=== PATIENT | female | born 1970 | race Caucasian/White ===

== ENCOUNTER → 2016-11-09 | Outpatient (CLI) | payer OTHER ==
--- NOTE | 2016-11-09 16:20 | CT ---
EXAMINATION TYPE: CT brain wo con DATE OF EXAM: 11/09/2016 4:09 PM COMPARISON: NONE HISTORY: Dizziness for 5-[address] DLP: 1121 mGycm Automated exposure control for dose reduction was used. FINDINGS: There is no acute intracranial hemorrhage, mass effect, or midline shift identified. The ventricles and sulci are within normal limits in size. Question some periventricular white matter low-attenuatio n. The globes are intact and the visualized sinuses are clear. IMPRESSION: No acute intracranial hemorrhage, mass effect, or midline shift is seen. Possible white matter demyel ination. Consider MRI.
== END | disposition home or self-care (01) ==
LOC: RADCTMAIN 15:47
PROVIDERS: ATTEND Family Medicine
DX: R42 Dizziness and giddiness (principal)
CPT/HCPCS: 70450

== ENCOUNTER → 2016-11-28 | Outpatient (CLI) | payer OTHER ==
--- NOTE | 2016-11-28 06:50 | MR ---
EXAMINATION TYPE: MR brain wo con DATE OF EXAM: 11/28/2016 6:44 AM COMPARISON: CT brain November 09, 2016. HISTORY: Dizziness, abnormal CT. TECHNIQUE: Multiplanar, multisequence imaging of the brain and brainstem is performed without IV cont rast. FINDINGS: Diffusion weighted images demonstrate no evidence of a recent infarct or other diffusion abnormality. There is no extraaxial fluid collection or significant white matter signal abnormality. The ventricu lar system and cisternal spaces are normal in size and appearance. The brain volume is age appropria te. Midline structures demonstrate normal morphology. The craniocervical junction appears within normal limits. Normal vascular flow voids are present. The visualized sinuses are clear and the globes are i ntact. No suspicious fluid signal is seen in mastoid air cells bilaterally. IMPRESSION: No significant white matter changes present. No significant finding is seen to account fo r patient's symptoms.
== END | disposition home or self-care (01) ==
LOC: RADMRIMAIN 06:06
PROVIDERS: ATTEND Family Medicine
DX: R93.0 Abnormal findings on diagnostic imaging of skull and head, not elsewhere classified (principal)
CPT/HCPCS: 70551

== ENCOUNTER → 2017-02-05 | Outpatient (CLI) | payer OTHER ==
--- NOTE | 2017-02-05 11:50 | MM ---
Reason for exam: clinical finding. Last mammogram was performed 7 years and 8 months ago. History: Family history of breast cancer in maternal aunt and breast cancer in maternal cousin. Excisional biopsy of the left breast, 2001. Benign stereotactic core biopsy of the left breast, September 28, 2000. Benign stereotactic core biopsy of the left breast, September 28, 2000. Indicated problem(s): palpable abnormality and pain in the left breast. Physical Findings: Nurse Summary: a 2cm nodule in the left breast at 10 o'clock (nurse ciarra). [facility] Diagnostic Mammo w CAD ROME Bilateral CC and MLO view(s) were taken. ML view(s) were taken of the left breast. Prior study comparison: June 22, 2009, left breast mammogram dig work up. June 18, 2009, bilateral digital screening mammogram. There are scattered fibroglandular densities. No suspicious calcifications are seen. A 2.4 cm lobulated mass in the left breast at 9 o'clock. These results were verbally communicated with the patient and result sheet given to the patient on 02/05/17. ASSESSMENT: Incomplete: need additional imaging evaluation, BI-RAD 0 RECOMMENDATION: Ultrasound of the left breast. Manage patient on a clinical basis.
--- NOTE | 2017-02-05 11:52 | USB ---
Reason for exam: additional evaluation requested from abnormal screening. History: Family history of breast cancer in maternal aunt and breast cancer in maternal cousin. Excisional biopsy of the left breast, 2001. Benign stereotactic core biopsy of the left breast, September 28, 2000. Benign stereotactic core biopsy of the left breast, September 28, 2000. US Breast LT Left breast ultrasound includes all four quadrants, the retroareolar region and axilla. Finding demonstrate a 0.5 x 0.4 x 0.4cm oval hypoechoic lesion at 12 o'clock, a 1.2 x 1.4 x 0.5cm oval, hypoechoic, vascular, periphery lesion at 1 o'clock for which a biopsy is recommended and a 2.4 x 2.0 x 1.8cm oval, lobulated, vascular, periphery lesion at 9 o'clock for which a biopsy is recommended. These results were verbally communicated with the patient and result sheet given to the patient on 02/05/17. ASSESSMENT: Suspicious, BI-RAD 4 RECOMMENDATION: Ultrasound core biopsy of the left breast (x 2) Called Dr. Steen with mammographic findings and has scheduled an appointment for the patient for 02/20/17 at 9:[address] Collazo. PRELIMINARY REPORT CALLED AND FAXED TO DR. COLLAZO ON 02/05/17 AT 300/TMP.
== END | disposition home or self-care (01) ==
LOC: RADMAMWWP 08:23
PROVIDERS: ATTEND Family Medicine
DX: R92.2 Inconclusive mammogram (principal); R92.8 Other abnormal and inconclusive findings on diagnostic imaging of breast; N63 Unspecified lump in breast; Z80.3 Family history of malignant neoplasm of breast
CPT/HCPCS: 76641; G0204

== ENCOUNTER → 2017-02-13 | Day surgery (SDC) | payer OTHER ==
[~2017-02-13] MED LIST: ALPRAZolam 0.25 MG TAB ONE; BACITRACIN OINT 1 EACH PACKET TOPICAL ONE; LIDOCAINE 1% INJ 10MG/ML (20 ML MDV) ONE
--- NOTE | 2017-02-13 14:29 | USB ---
EXAMINATION TYPE: US biopsy breast VAD LT, US biopsy breast add'l VAD LT Post biopsy left breast mammogram DATE OF EXAM: 02/13/2017 1:36 PM CLINICAL HISTORY: 46-year-old female abnormal mammogram, enlarging left breast mass for the last 6 months. TECHNIQUE: Ultrasound guided core biopsy of the left breast, 2 sites. COMPARISON: 02/05/2017 FINDINGS: The procedure of ultrasound guided core biopsy was explained to the patient. Benefits, alternatives, and risks were discussed. An informed consent was then obtained. The patient was placed in supine positioning for imaging and for the procedure. The overlying skin was prepped and draped in usual sterile fashion. Lidocaine was used as anesthetic into the skin and subcutaneous tissue up to age area of concern in the left breast in turn. Site A, 1:00 (1.2 x 1.2 cm circumscribed, ovoid solid mass) -- Under ultrasound guidance, a 13-gauge vacuum-assisted mammotome Elite biopsy gun was used to obtain 6 core samples. Following this, a coil clip was left in lesion. Site B, 9:00 (large 2.1 cm lobulated solid mass) -- Under ultrasound guidance, a 13-gauge vacuum-assisted mammotome Elite biopsy gun was used to obtain 6 core samples. Following this, a ribbon clip was deposited at the periphery of the lesion. The patient tolerated the procedure well without any immediate complication. The patient was kept in the radiology department for short stay after the procedure and then discharged home in stable condition. Postbiopsy mammogram shows clips in appropriate positioning. IMPRESSION: Successful, uncomplicated ultrasound guided core biopsy (2 sites) in the left breast, full pathology results to follow. Note that if there happen to be benign results for the 9:00 lesion, given the growth over 6 months, surgical excision may still be warranted. Pathology Results: Benign A. 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 B. BREAST, LEFT NINE O'CLOCK, CORE BIOPSY: FIBROADENOMA. Recommendation Follow up mammogram of the left breast in 6 months. Surgical excision can be considered for the 9 o'clock lesion given reported growth over 6 months. MTDD
== END ==
LOC: RADUSWWP 11:16
PROVIDERS: ATTEND Surgery
DX: D24.2 Benign neoplasm of left breast (principal); N60.32 Fibrosclerosis of left breast; R92.8 Other abnormal and inconclusive findings on diagnostic imaging of breast; N64.89 Other specified disorders of breast; Z88.1 Allergy status to other antibiotic agents; Z88.5 Allergy status to narcotic agent; Z88.2 Allergy status to sulfonamides
CPT/HCPCS: 88305; 19083; 19084; G0206; A4648; J2001

== ENCOUNTER → 2019-08-19 | Outpatient (CLI) | payer OTHER ==
--- NOTE | 2019-08-19 18:26 | CONS ---
CONSULTATION REASON FOR CONSULTATION: Sleep apnea. This patient is 49, coming in upon request of her research assistant member to be evaluated for sleep apnea. The patient was recently undergoing an investigation for heart palpitations that were occurring during the day and nighttime. She has undergone a cardiac workup which included an echocardiogram and stress test, all negative. Upon further questioning, she screened positive for sleep apnea, including the fact that she snored and she felt tired and sleepy throughout the day, taking multiple naps. For that reason she was referred to me. She goes to bed between 10 and 11 p.m., wakes up at 8 a.m. in the morning. She wakes up tired and fatigued and sleepy during the day. She has gained weight over the years and she is up by around 10 to 20 pounds. No reported history of grinding of the teeth. No restlessness in the lower extremities. The patient has diabetic peripheral neuropathy, for which she is on Neurontin. No nighttime chest pain or shortness of breath or heartburn. No history of any motor vehicle accident because of feeling drowsy or sleepy. PAST MEDICAL HISTORY: 1. Diabetes mellitus. 2. Hypertension. 3. Hyperlipidemia. 4. Chronic anxiety. 5. Diabetic peripheral neuropathy. PAST SURGICAL HISTORY: 1. Hysterectomy. 2. Hemorrhoidectomy. 3. Arthroscopy. 4. Arthroscopic knee surgery. 5. Resection of a cyst from the breast. DRUG ALLERGIES: NOT KNOWN. OUTPATIENT MEDICATION LIST: Outpatient medication list includes: 1. Venlafaxine 37.5 mg p.o. daily. 2. Metformin 1 gram twice a day. 3. Lipitor 20 daily. 4. Omeprazole 20 daily. 5. 1 mg twice a day. 6. Vitamin D 1000 b.i.d. 7. Fish oil 1000 four times a day. 8. Losartan 50 mg p.o. daily. 9. Potassium tablets. SOCIAL HISTORY: The patient is a nonsmoker. No history of alcoholism. No history of IV drugs. FAMILY HISTORY: Father's history is unknown. Mother of complications of metastatic cancer. REVIEW OF SYSTEMS: Fourteen-point review of systems was done. All of the positive findings were mentioned above. She snores. She is excessively sleepy during the day. Her Papa[place] score is 9. At times she has been told that she stops breathing at night. She snores very loudly. No grinding of the teeth. She wakes up with a dry mouth. No nighttime heartburn, chest pain. She has anxiety. No claustrophobia. No depression. No sleep paralysis, hallucinations or cataplexy. PHYSICAL EXAMINATION: VITAL SIGNS: BP is 144/84, pulse 94, respirations 16, temperature 97.8, saturation 98% on room air. Height is 5 feet 6 inches, weight 215. BMI is 34.4. Neck size is 15 inches. GENERAL APPEARANCE: Calm, comfortable. HEAD: Atraumatic, normocephalic. NECK: Supple. No JVD. No goiter or neck masses. Mallampati class IV. LUNGS: Clear to auscultation. HEART: Heart sounds are regular rate and rhythm. Normal S1, S2. No S3, S4. No murmurs. ABDOMEN: Soft, nontender. No organomegaly. EXTREMITIES: No edema. No cyanosis or clubbing. NEUROLOGIC: Alert and oriented x3. No focal neurological deficits. PSYCHIATRIC: Positive for anxiety. Negative for depression. IMPRESSION: 1. Hypersomnia with an Papa[place] score of 9. Consider obstructive sleep apnea. There is increased likelihood that the patient may have sleep apnea, as the patient has loud snoring, Mallampati class IV, in addition to chronic tiredness and sleepiness. 2. Palpitations, under investigations. Cardiac workup has been negative. Could be related to anxiety. 3. Diabetes mellitus. 4. Hyperlipidemia. 5. Hypertension. 6. Diabetic peripheral neuropathy. PLAN: 1. Proceed with a screening polysomnogram. 2. Encourage weight loss. 3. Check thyroid function tests if this is not something that has been done already. 4. Implement good sleep hygiene measures. 5. Will continue to follow. MMODL / IJN: [id number] /
== END ==
LOC: SLEEP 14:12
PROVIDERS: ATTEND Internal Medicine Critical Care Medicine
DX: G47.10 Hypersomnia, unspecified (principal); E11.42 Type 2 diabetes mellitus with diabetic polyneuropathy; E78.5 Hyperlipidemia, unspecified; I10 Essential (primary) hypertension; R00.2 Palpitations; Z79.899 Other long term (current) drug therapy; Z79.84 Long term (current) use of oral hypoglycemic drugs
CPT/HCPCS: 99211

== ENCOUNTER 2020-11-15 19:17 | Emergency (ER) | payer OTHER ==
[2020-11-15 19:22] LABS: Glucose,Whole Blood 73 mg/dL (75-99)
[2020-11-15 19:25] VITALS: TEMP 98.5
[2020-11-15 20:21] LABS: Glucose,Whole Blood 85 mg/dL (75-99)
[2020-11-15 20:30] LABS: Amphetamine Screen,Urine Not Detected (NotDetected); Barbiturate Screen,Urine Not Detected (NotDetected); Benzodiazepines Screen,Urine Detected (NotDetected); Cocaine Screen,Urine Not Detected (NotDetected); Methadone Screen, Urine Not Detected (NotDetected); Opiate Screen,Urine Not Detected (NotDetected); Oxycodone Screen, Urine Not Detected (NotDetected); Phencyclidine Screen,Urine Not Detected (NotDetected); Tricyclic Antidepressant,Urine Not Detected (NotDetected); Urn Cannabinoid Scrn Not Detected (NotDetected)
--- NOTE | 2020-11-15 20:45 | ED ---
General Adult HPI - General Chief complaint: Psychiatric Symptoms Stated complaint: Low blood sugar Time Seen by Provider: 11/15/20 19:27 Source: patient Mode of arrival: wheelchair Limitations: no limitations - History of Present Illness Initial comments: 50-year-old female with a past medical history of hysterectomy, diabetes mellitus, hyperlipidemia presents to the emergency room for a chief complaint of low glucose. Patient states her glucose was 73 at home. Patient reports that she does not take insulin but does have diabetes. She takes oral medications for this. Patient states she has been feeling more tired and thought this could be due to her glucose. Patient also tearful in exam room stating she is suicidal. States she always has these thoughts. Patient reports that she feels as though people would be better off if she was not here. States that she takes anxiety medication for this but otherwise does not take antidepressants or sees a counselor. She was anxious today and felt like her heart was palpitating. She denies chest pain. Denies shortness of breath.Patient has no other complaints at this time including shortness of breath, chest pain, abdominal pain, nausea or vomiting, headache, or visual changes. - Related Data Home Medications Medication Instructions Recorded Confirmed Atorvastatin [Lipitor] 20 mg PO HS 11/15/20 11/15/20 Cholecalciferol [Vitamin D3 (25 25 mcg PO BID 11/15/20 11/15/20 Mcg = 1000 Iu)] FLUoxetine HCL [PROzac] 40 mg PO DAILY 11/15/20 11/15/20 Gabapentin 300 mg PO QID 11/15/20 11/15/20 Glimepiride [Amaryl] 1 mg PO BID 11/15/20 11/15/20 Losartan [Cozaar] 50 mg PO DAILY 11/15/20 11/15/20 [place]-3 Fatty Acids/Fish Oil [Fish 1 cap PO QID 11/15/20 11/15/20 Oil 1,000 mg Softgel] Omeprazole 20 mg PO DAILY 11/15/20 11/15/20 metFORMIN HCL 1,000 mg PO BID 11/15/20 11/15/20 Allergies Allergy/AdvReac Type Severity Reaction Status Date / Time Sulfa (Sulfonamide Allergy Unknown Verified 11/15/20 20:32 Antibiotics) Review of Systems ROS Statement: Those systems with pertinent positive or pertinent negative responses have been documented in the HPI. ROS Other: All systems not noted in ROS Statement are negative. Past Medical History Past Medical History: Diabetes Mellitus, Hyperlipidemia History of Any Multi-Drug Resistant Organisms: None Reported Past Surgical History: Hysterectomy, Orthopedic Surgery Additional Past Surgical History / Comment(s): lump on breast Past Psychological History: No Psychological Hx Reported Smoking Status: Never smoker Past Alcohol Use History: None Reported Past Drug Use History: None Reported General Exam Limitations: no limitations General appearance: alert, in no apparent distress, other (tearful) Head exam: Present: atraumatic Eye exam: Present: normal appearance, PERRL, EOMI. Absent: scleral icterus, conjunctival injection ENT exam: Present: normal exam, mucous membranes moist Neck exam: Present: normal inspection, full ROM. Absent: tenderness Respiratory exam: Present: normal lung sounds bilaterally. Absent: respiratory distress, wheezes, rales, rhonchi, stridor Cardiovascular Exam: Present: regular rate, normal rhythm, normal heart sounds. Absent: systolic murmur, diastolic murmur, rubs, gallop, clicks GI/Abdominal exam: Present: soft, normal bowel sounds. Absent: distended, tenderness, guarding, rebound, rigid Neurological exam: Present: alert Course Vital Signs 11/15/20 19:18 Temperature 98.5 F Pulse Rate 77 Respiratory 18 Rate Blood Pressure 186/92 O2 Sat by Pulse 100 Oximetry EKG Findings - EKG Comments: EKG Findings:: Normal sinus rhythm, ventricular rate 73, MI interval 166, QTc 449 Medical Decision Making - Medical Decision Making Vitals are stable. Patient well-appearing. Patient initially tearful presentation stating that she is suicidal. However she states these are chronic and she is not any active suicidal thoughts. She also reports she's been more tired lately so checked her glucose and it was in the 70s. Patient reports that she does not take insulin for her diabetes but does have diabetes. Glucose here has been from 73-85. She is able to drink OJ. She states she feels well at this time. Patient was seen by EPS, safety plan recommended. Patient again denying any active suicidal thoughts. Patient is feeling much improved. At this time patient will be discharged home. She will follow-up with her doctor in one to 2 days or return for any worsening symptoms. I discussed this case with attending Dr. Acevedo who agrees with this assessment and treatment plan. - Lab Data Lab Results 11/15/20 11/15/20 11/15/20 Range/Units 19:20 20:19 22:05 POC Glucose (mg/dL) 73 L 85 85 (75-99) mg/dL POC Glu [employer] Nurs[employer] Specialist ID Jina Rice, Darrell Duong Urine Opiates Screen (NotDetected) Ur Oxycodone Screen (NotDetected) Urine Methadone Screen (NotDetected) Ur Propoxyphene Screen (NotDetected) Ur Barbiturates Screen (NotDetected) U Tricyclic Antidepress (NotDetected) Ur Phencyclidine Scrn (NotDetected) Ur Amphetamines Screen (NotDetected) U Methamphetamines Scrn (NotDetected) U Benzodiazepines Scrn (NotDetected) Urine Cocaine Screen (NotDetected) U Marijuana (THC) Screen (NotDetected) 11/15/20 Range/Units Unknown POC Glucose (mg/dL) (75-99) mg/dL POC Glu [employer] Nurs[employer] Specialist ID Urine Opiates Screen Not Detected (NotDetected) Ur Oxycodone Screen Not Detected (NotDetected) Urine Methadone Screen Not Detected (NotDetected) Ur Propoxyphene Screen Not Detected (NotDetected) Ur Barbiturates Screen Not Detected (NotDetected) U Tricyclic Antidepress Not Detected (NotDetected) Ur Phencyclidine Scrn Not Detected (NotDetected) Ur Amphetamines Screen Not Detected (NotDetected) U Methamphetamines Scrn Not Detected (NotDetected) U Benzodiazepines Scrn Detected H (NotDetected) Urine Cocaine Screen Not Detected (NotDetected) U Marijuana (THC) Screen Not Detected (NotDetected) Disposition Clinical Impression: Depression Disposition: HOME SELF-CARE Condition: Good Instructions (If sedation given, give patient instructions): Hypoglycemia in a Person with Diabetes (ED), Depression (ED) Additional Instructions: Please make sure to eat and drink throughout the day. If your blood sugars going lower than 60 you need to return to the emergency room. If you develop any worsening symptoms return to the ER as well. Otherwise follow-up with your doctor. Is patient prescribed a controlled substance at d/c from ED?: No Referrals: Christi Hunter MD [Primary Care Provider] - 1-2 days Time of Disposition: 22:23
[2020-11-15 22:07] LABS: Glucose,Whole Blood 85 mg/dL (75-99)
[2020-11-15 22:42] VITALS: BP 133/66; PULSE 75; RESP 16
== END 2020-11-15 22:42 | disposition home or self-care (01) ==
LOC: EC 19:17
DX: F32.9 Major depressive disorder, single episode, unspecified (principal); E11.649 Type 2 diabetes mellitus with hypoglycemia without coma; E78.5 Hyperlipidemia, unspecified; Z79.84 Long term (current) use of oral hypoglycemic drugs; Z79.899 Other long term (current) drug therapy; Z88.2 Allergy status to sulfonamides; Z91.14 Patient's other noncompliance with medication regimen
CPT/HCPCS: 36415; 80306; 82075; 93005; 99285

== ENCOUNTER 2021-03-17 08:30 | Day surgery (SDC) | payer OTHER ==
[2021-03-15 16:02] VITALS: BMI 32.9
[~2021-03-17 08:30] MED LIST changes: -ALPRAZolam 0.25 MG TAB ONE; -BACITRACIN OINT 1 EACH PACKET TOPICAL ONE; +LACTATED RINGERS 1,000 ML IV SCH; -LIDOCAINE 1% INJ 10MG/ML (20 ML MDV) ONE
[2021-03-17 08:57] VITALS: TEMP 97.8
[2021-03-17 09:09] LABS: Glucose,Whole Blood 130 mg/dL (75-99)
[2021-03-17] MEDS ORDERED: PROPOFOL 10 MG/ML 20 ML VIAL IV ONE (09:30)
--- NOTE | 2021-03-17 09:53 | P.PCN ---
Date of Procedure: 03/17/21 Description of Procedure: BRIEF HISTORY: Patient is a 50-year-old female presenting for outpatient colonoscopy for screening for malignant neoplasm: Change in bowel habits, blood per rectum or abdominal pain. No family history of colon cancer. Last colonoscopy performed remotely, patient is unsure why the procedure was performed at that time believes it was PROCEDURE PERFORMED: Colonoscopy with polypectomy. PREOPERATIVE DIAGNOSIS: Screening for malignant neoplasm of the colon, patient reports remote history of colonoscopy. ESTIMATED BLOOD LOSS: Minimal. IV sedation per Anesthesia. PROCEDURE: After informed consent was obtained, the patient, was brought into the endoscopy unit. IV sedation was administered by Anesthesia under continuous monitoring. Digital rectal examination was normal. Initially the Olympus CF-190 flexible video colonoscope was then inserted in the rectum, gradually advanced into the cecum without any difficulty. Careful examination was performed as the scope was gradually being withdrawn. Ileocecal valve and the appendiceal orifice were visualized and appeared normal. Prep was excellent. Mucosa of the cecum, ascending colon, transverse colon, descending colon, sigmoid colon, and rectum appeared normal, except for a diminutive 2 mm rectal polyp removed with cold forcep polypectomy . Retroflexion was performed in the rectum and no lesions were seen, internal hemorrhoids were seen . The patient tolerated the procedure well. IMPRESSION: Diminutive rectal polyp removed with cold forcep polypectomy. Internal hemorrhoids. RECOMMENDATIONS: Findings of this examination were discussed with the patient and her family. Okay to resume diet. Okay to resume medication. Await pathology from polypectomy. Recommend repeat colonoscopy in 7 years for colon polyp any pathology from polypectomy (10 years if hyperplastic polyp).
[2021-03-17 10:20] VITALS: BP 112/72; PULSE 67; RESP 20
== END 2021-03-17 10:30 | disposition home or self-care (01) ==
LOC: ORWHC2ENDO 08:30
PROVIDERS: ATTEND Internal Medicine
DX: Z12.11 Encounter for screening for malignant neoplasm of colon (principal); K62.1 Rectal polyp; K64.8 Other hemorrhoids; I10 Essential (primary) hypertension; E78.5 Hyperlipidemia, unspecified; E11.9 Type 2 diabetes mellitus without complications; F32.9 Major depressive disorder, single episode, unspecified; K21.9 Gastro-esophageal reflux disease without esophagitis; Z90.710 Acquired absence of both cervix and uterus; Z98.890 Other specified postprocedural states; Z79.84 Long term (current) use of oral hypoglycemic drugs; Z79.899 Other long term (current) drug therapy; Z88.2 Allergy status to sulfonamides
CPT/HCPCS: 88305; 45380; J2704

== ENCOUNTER 2025-01-05 18:20 | Emergency (ER) | payer OTHER ==
[2025-01-05 18:33] LABS: Glucose,Whole Blood 488 mg/dL (70-110)
[2025-01-05 18:34] VITALS: TEMP 98
--- NOTE | 2025-01-05 19:00 | ED ---
Recheck HPI - General Chief Complaint: Recheck/Abnormal Lab/Rx Stated Complaint: Hyperglycemia Time Seen by Provider: 01/05/25 18:57 Source: patient, RN notes reviewed Mode of arrival: ambulatory Limitations: no limitations - History of Present Illness Initial Comments: 54-year-old female with history of type 2 diabetes presenting for high glucose. States her glucose meter has been reading high all day. She endorses generalized weakness and fatigue. Endorses extreme thirst and frequent urination. Denies chest pain, abdominal pain, nausea, vomiting, fevers. She was placed on steroids for back pain 2 days ago. She does not take insulin for her diabetes. States she only takes pills. Other medical history includes hypertension and hyperlipidemia. - Related Data Home Medications Medication Instructions Recorded Confirmed Atorvastatin [Lipitor] 20 mg PO HS 11/15/20 03/17/21 Cholecalciferol [Vitamin D3 (25 25 mcg PO DAILY 11/15/20 03/17/21 Mcg = 1000 Iu)] FLUoxetine HCL [PROzac] 40 mg PO DAILY 11/15/20 03/17/21 Gabapentin 300 mg PO QID 11/15/20 03/17/21 Glimepiride [Amaryl] 2 mg PO QAM 11/15/20 03/17/21 Losartan [Cozaar] 50 mg PO DAILY 11/15/20 03/17/21 [place]-3 Fatty Acids/Fish Oil [Fish 1 cap PO DAILY 11/15/20 03/17/21 Oil 1,000 mg Softgel] Omeprazole 20 mg PO DAILY 11/15/20 03/17/21 metFORMIN HCL [Glucophage] 1,000 mg PO BID 11/15/20 03/17/21 ARIPiprazole [Abilify] 10 mg PO W/LUNCH 03/15/21 03/17/21 Glimepiride [Amaryl] 1 mg PO HS 03/15/21 03/17/21 traZODone HCL 100 mg PO HS 03/15/21 03/17/21 Allergies Allergy/AdvReac Type Severity Reaction Status Date / Time Sulfa (Sulfonamide Allergy Unknown Verified 03/17/21 08:57 Antibiotics) Childhood Review of Systems ROS Statement: Those systems with pertinent positive or pertinent negative responses have been documented in the HPI. ROS Other: All systems not noted in ROS Statement are negative. Past Medical History Past Medical History: Diabetes Mellitus, Hyperlipidemia, Hypertension History of Any Multi-Drug Resistant Organisms: None Reported Past Surgical History: Breast Surgery, Hysterectomy, Orthopedic Surgery Additional Past Surgical History / Comment(s): lump on breast-LT SIDE X 2. RT KNEE SCOPE. COLONOSCOPY/EGD Past Anesthesia/Blood Transfusion Reactions: Postoperative Nausea & Vomiting (PONV) Past Psychological History: Depression Smoking Status: Never smoker - Past Family History Mother Family Medical History: Cancer General Exam Limitations: no limitations General appearance: alert, in no apparent distress Head exam: Present: atraumatic, normocephalic, normal inspection Eye exam: Present: normal appearance, PERRL, EOMI. Absent: scleral icterus, conjunctival injection, periorbital swelling Neck exam: Present: normal inspection. Absent: tenderness, meningismus, lymphadenopathy Respiratory exam: Present: normal lung sounds bilaterally. Absent: respiratory distress, wheezes, rales, rhonchi, stridor Cardiovascular Exam: Present: regular rate, normal rhythm, normal heart sounds. Absent: systolic murmur, diastolic murmur, rubs, gallop, clicks GI/Abdominal exam: Present: soft, normal bowel sounds. Absent: distended, tenderness, guarding, rebound, rigid Back exam: Absent: CVA tenderness (R), CVA tenderness (L) Neurological exam: Present: alert, oriented X3 Psychiatric exam: Present: normal affect, normal mood Skin exam: Present: warm, dry, intact, normal color. Absent: rash Course Vital Signs 01/05/25 01/05/25 18:31 21:33 Temperature 98 F Pulse Rate 76 77 Respiratory 16 18 Rate Blood Pressure 138/63 117/77 O2 Sat by Pulse 96 95 Oximetry Medical Decision Making - Medical Decision Making Was pt. sent in by a medical professional or institution (, PA, SEAM SEWER, urgent care, hospital, or senior care...) When possible be specific @ -No Did you speak to anyone other than the patient for history (EMS, parent, family, police, friend...)? What history was obtained from this source @ -No Did you review nursing and triage notes (agree or disagree)? Why? @ -I reviewed and agree with nursing and triage notes Were old charts reviewed (outside hosp., previous admission, EMS record, old EKG, old radiological studies, urgent care reports/EKG's, senior care records)? Report findings @ -No old charts were reviewed Differential Diagnosis (chest pain, altered mental status, abdominal pain women, abdominal pain men, vaginal bleeding, weakness, fever, dyspnea, syncope, headache, dizziness, GI bleed, back pain, seizure, CVA, palpatations, mental health, musculoskeletal)? @ -Hyperglycemia, DKA, HHS EKG interpreted by me (3pts min.). @ -As above X-rays interpreted by me (1pt min.). @ -None done CT interpreted by me (1pt min.). @ -None done U/S interpreted by me (1pt. min.). @ -None done What testing was considered but not performed or refused? (CT, X-rays, U/S, labs)? Why? @ -None What meds were considered but not given or refused? Why? @ -None Did you discuss the management of the patient with other professionals (professionals i.e. , PA, SEAM SEWER, lab, RT, psych nurse, social economist, sales ledger administrator, teacher, contracts officer, keycase assembler)? Give summary @ -No Was smoking cessation discussed for >3mins.? @ -No Was critical care preformed (if so, how long)? @ -No Were there social determinants of health that impacted care today? How? (Homelessness, low income, unemployed, alcoholism, drug addiction, transportation, low edu. Level, literacy, decrease access to med. care, fdc, rehab)? @ -No Was there de-escalation of care discussed even if they declined (Discuss DNR or withdrawal of care, Hospice)? DNR status @ -No What co-morbidities impacted this encounter? (DM, HTN, Smoking, COPD, CAD, Cancer, CVA, ARF, Chemo, Hep., AIDS, mental health diagnosis, sleep apnea, morbid obesity)? @ -None Was patient admitted / discharged? Hospital course, mention meds given and route, prescriptions, significant lab abnormalities, going to OR and other pertinent info. @ -Discharge. 54-year-old female presenting for hyperglycemia. Blood glucose is 488 in triage. Patient has a history of wud-hhtxian-vilstlryt type 2 diabetes. Vital signs within acceptable limits. Patient is well-appearing, no acute distress. Patient is provided with IV fluid bolus. Patient is not in DKA. White blood cell count 12.9 likely reactive from steroid use. pCO2 38, anion gap 8, lactic acid 2.0, potassium 4.6, acetone negative. Urinalysis remarkable for 4+ glucose, negative for ketones. Patient was provided with 5 units of IV insulin. Upon reevaluation, blood glucose is 180 and patient repo rts improvement of symptoms. Discussed results with patient. Hyperglycemia likely triggered by steroid use. Advised close follow-up with PCP. Appropriate return precautions and supportive care discussed. Case was discussed with my ED attending Dr. Chisholm. Undiagnosed new problem with uncertain prognosis? @ -No Drug Therapy requiring intensive monitoring for toxicity (Heparin, Nitro, Insulin, Cardizem)? @ -No Were any procedures done? @ -No Diagnosis/symptom? @ -Hyperglycemia Acute, or Chronic, or Acute on Chronic? @ -Acute Uncomplicated (without systemic symptoms) or Complicated (systemic symptoms)? @ -Complicated Side effects of treatment? @ -No Exacerbation, Progression, or Severe Exacerbation? @ -No Poses a threat to life or bodily function? How? (Chest pain, [place], AR, pneumonia, PE, COPD, DKA, ARF, appy, cholecystitis, CVA, Diverticulitis, Homicidal, Suicidal, threat to staff... and all critical care pts) @ -Not at this time - Lab Data Result diagrams: 01/05/25 19:30 01/05/25 19:30 Lab Results 01/05/25 01/05/25 01/05/25 Range/Units 18:32 19:09 19:09 WBC (3.8-10.6) k/uL RBC (3.80-5.40) m/uL Hgb (11.4-16.0) gm/dL Hct (34.0-46.0) % MCV (80.0-100.0) fL MCH (25.0-35.0) pg MCHC (31.0-37.0) g/dL RDW (11.5-15.5) % Plt Count (150-450) k/uL MPV Neutrophils % % Lymphocytes % % Monocytes % % Eosinophils % % Basophils % % Neutrophils # (1.3-7.7) k/uL Lymphocytes # (1.0-4.8) k/uL Monocytes # (0-1.0) k/uL Eosinophils # (0-0.7) k/uL Basophils # (0-0.2) k/uL VBG pH 7.42 H (7.31-7.41) VBG pCO2 38 (37-51) mmHg VBG HCO3 25 (24-28) mmol/L Sodium (137-145) mmol/L Potassium (3.5-5.1) mmol/L Chloride (98-107) mmol/L Carbon Dioxide (22-30) mmol/L Anion Gap mmol/L BUN (7-17) mg/dL Creatinine (0.52-1.04) mg/dL Est GFR (CKD-EPI)AfAm (>60 ml/min/1.73 sqM) Est GFR (CKD-EPI)NonAf (>60 ml/min/1.73 sqM) Glucose (74-99) mg/dL POC Glucose (mg/dL) 488 H (70-110) mg/dL POC Glu Lead Data Architect ID Juno Lockwood Plasma Lactic Acid Wil 2.0 (0.7-2.0) mmol/L Calcium (8.4-10.2) mg/dL Total Bilirubin (0.2-1.3) mg/dL AST (14-36) U/L ALT (4-34) U/L Alkaline Phosphatase (38-126) U/L Total Protein (6.3-8.2) g/dL Albumin (3.5-5.0) g/dL Urine Color Urine Appearance (Clear) Urine pH (5.0-8.0) Ur Specific [place] (1.001-1.035) Urine Protein (Negative) Urine Glucose (UA) (Negative) Urine Ketones (Negative) Urine Blood (Negative) Urine Nitrite (Negative) Urine Bilirubin (Negative) Urine Urobilinogen (<2.0) mg/dL Ur Leukocyte Esterase (Negative) Acetone, Qual (Negative) 01/05/25 01/05/25 01/05/25 Range/Units 19:30 19:30 19:30 WBC 12.9 H (3.8-10.6) k/uL RBC 3.91 (3.80-5.40) m/uL Hgb 11.6 (11.4-16.0) gm/dL Hct 34.9 (34.0-46.0) % MCV 89.3 (80.0-100.0) fL MCH 29.7 (25.0-35.0) pg MCHC 33.3 (31.0-37.0) g/dL RDW 13.1 (11.5-15.5) % Plt Count 274 (150-450) k/uL MPV 7.3 Neutrophils % 94 % Lymphocytes % 4 % Monocytes % 1 % Eosinophils % 1 % Basophils % 0 % Neutrophils # 12.1 H (1.3-7.7) k/uL Lymphocytes # 0.5 L (1.0-4.8) k/uL Monocytes # 0.2 (0-1.0) k/uL Eosinophils # 0.2 (0-0.7) k/uL Basophils # 0.0 (0-0.2) k/uL VBG pH (7.31-7.41) VBG pCO2 (37-51) mmHg VBG HCO3 (24-28) mmol/L Sodium 132 L (137-145) mmol/L Potassium 4.6 (3.5-5.1) mmol/L Chloride 103 (98-107) mmol/L Carbon Dioxide 21 L (22-30) mmol/L Anion Gap 8 mmol/L BUN 14 (7-17) mg/dL Creatinine 1.06 H (0.52-1.04) mg/dL Est GFR (CKD-EPI)AfAm 69 (>60 ml/min/1.73 sqM) Est GFR (CKD-EPI)NonAf 60 (>60 ml/min/1.73 sqM) Glucose 382 H (74-99) mg/dL POC Glucose (mg/dL) (70-110) mg/dL POC Glu Lead Data Architect ID Plasma Lactic Acid Wil (0.7-2.0) mmol/L Calcium 9.0 (8.4-10.2) mg/dL Total Bilirubin 0.5 (0.2-1.3) mg/dL AST 21 (14-36) U/L ALT 20 (4-34) U/L Alkaline Phosphatase 71 (38-126) U/L Total Protein 6.3 (6.3-8.2) g/dL Albumin 3.6 (3.5-5.0) g/dL Urine Color Colorless Urine Appearance Clear (Clear) Urine pH 5.5 (5.0-8.0) Ur Specific [place] 1.031 (1.001-1.035) Urine Protein Negative (Negative) Urine Glucose (UA) 4+ H (Negative) Urine Ketones Negative (Negative) Urine Blood Negative (Negative) Urine Nitrite Negative (Negative) Urine Bilirubin Negative (Negative) Urine Urobilinogen <2.0 (<2.0) mg/dL Ur Leukocyte Esterase Negative (Negative) Acetone, Qual Negative (Negative) 01/05/25 Range/Units 21:05 WBC (3.8-10.6) k/uL RBC (3.80-5.40) m/uL Hgb (11.4-16.0) gm/dL Hct (34.0-46.0) % MCV (80.0-100.0) fL MCH (25.0-35.0) pg MCHC (31.0-37.0) g/dL RDW (11.5-15.5) % Plt Count (150-450) k/uL MPV Neutrophils % % Lymphocytes % % Monocytes % % Eosinophils % % Basophils % % Neutrophils # (1.3-7.7) k/uL Lymphocytes # (1.0-4.8) k/uL Monocytes # (0-1.0) k/uL Eosinophils # (0-0.7) k/uL Basophils # (0-0.2) k/uL VBG pH (7.31-7.41) VBG pCO2 (37-51) mmHg VBG HCO3 (24-28) mmol/L Sodium (137-145) mmol/L Potassium (3.5-5.1) mmol/L Chloride (98-107) mmol/L Carbon Dioxide (22-30) mmol/L Anion Gap mmol/L BUN (7-17) mg/dL Creatinine (0.52-1.04) mg/dL Est GFR (CKD-EPI)AfAm (>60 ml/min/1.73 sqM) Est GFR (CKD-EPI)NonAf (>60 ml/min/1.73 sqM) Glucose (74-99) mg/dL POC Glucose (mg/dL) 183 H (70-110) mg/dL POC Glu Lead Data Architect ID Kim Wisdom Plasma Lactic Acid Wil (0.7-2.0) mmol/L Calcium (8.4-10.2) mg/dL Total Bilirubin (0.2-1.3) mg/dL AST (14-36) U/L ALT (4-34) U/L Alkaline Phosphatase (38-126) U/L Total Protein (6.3-8.2) g/dL Albumin (3.5-5.0) g/dL Urine Color Urine Appearance (Clear) Urine pH (5.0-8.0) Ur Specific [place] (1.001-1.035) Urine Protein (Negative) Urine Glucose (UA) (Negative) Urine Ketones (Negative) Urine Blood (Negative) Urine Nitrite (Negative) Urine Bilirubin (Negative) Urine Urobilinogen (<2.0) mg/dL Ur Leukocyte Esterase (Negative) Acetone, Qual (Negative) - EKG Data -: EKG Interpreted by Me EKG Comments: EKG reveals sinus bradycardia with no acute ST changes. Ventricular rate 58 bpm, NM interval 180, QRS duration 101, QT/QTc 389/387 Disposition Clinical Impression: Hyperglycemia Disposition: HOME SELF-CARE Condition: Stable Instructions (If sedation given, give patient instructions): Diabetic Hyperglycemia (ED) Additional Instructions: Follow-up with your PCP. Discontinue steroids. Please return to the Emergency Department if symptoms worsen or any other concerns. Is patient prescribed a controlled substance at d/c from ED?: No Referrals: Yulisa Guzman MD [Primary Care Provider] - 1-2 days Time of Disposition: 21:23
[2025-01-05 19:21] LABS: VBG PH 7.42 (7.31-7.41)
[2025-01-05 19:44] LABS: Appearance,Urine Clear (Clear); Basophils % (A) 0 %; Bilirubin,Urine Negative (Negative); Blood,Urine Negative (Negative); Color,Urine Colorless; Eosinophils # (A) 0.2 k/uL (0-0.7); Eosinophils % (A) 1 %; Glucose,Urine (UA) 4+ (Negative); HCT 34.9 % (34.0-46.0); HGB 11.6 gm/dL (11.4-16.0); Ketones,Urine Negative (Negative); Leukocyte Esterase,Urine Negative (Negative); Lymphocytes # (A) 0.5 k/uL (1.0-4.8); Lymphocytes % (A) 4 %; MCH 29.7 pg (25.0-35.0); MCHC 33.3 g/dL (31.0-37.0); MCV 89.3 fL (80.0-100.0); Mean Platelet Volume 7.3; Monocytes # (A) 0.2 k/uL (0-1.0); Monocytes % (A) 1 %; Neutrophils # (A) 12.1 k/uL (1.3-7.7); Neutrophils % (A) 94 %; Nitrite,Urine Negative (Negative); PH, Urine 5.5 (5.0-8.0); Platelet Count 274 k/uL (150-450); Protein,Urine Negative (Negative); RBC 3.91 m/uL (3.80-5.40); RDW 13.1 % (11.5-15.5); Specific Gravity,Urine 1.031 (1.001-1.035); Urobilinogen,Urine <2.0 mg/dL (<2.0); WBC 12.9 k/uL (3.8-10.6)
[2025-01-05] MEDS: SODIUM CHLORIDE 0.9% 1,000 ML IV STA ×2 (19:50→21:17)
[2025-01-05 19:55] LABS: ALT 20 U/L (4-34); AST 21 U/L (14-36); African American GFR (CKD) 69 (>60 ml/min/1.73 sqM); Albumin 3.6 g/dL (3.5-5.0); Alkaline Phosphatase 71 U/L (38-126); Anion Gap 8 mmol/L; Blood Urea Nitrogen 14 mg/dL (7-17); Carbon Dioxide 21 mmol/L (22-30); Chloride 103 mmol/L (98-107); Glucose 382 mg/dL (74-99); Non-African American GFR(CKD) 60 (>60 ml/min/1.73 sqM); Potassium 4.6 mmol/L (3.5-5.1); Sodium 132 mmol/L (137-145); Total Bilirubin 0.5 mg/dL (0.2-1.3); Total Protein 6.3 g/dL (6.3-8.2)
[2025-01-05] MEDS: INSULIN REGULAR 100 UNIT/ML VIAL (IV) IV ONE (20:21)
[2025-01-05 21:06] LABS: Glucose,Whole Blood 183 mg/dL (70-110)
[2025-01-05 21:36] VITALS: BP 117/77; PULSE 77; RESP 18
== END 2025-01-05 21:40 | disposition home or self-care (01) ==
LOC: EC 18:20
DX: E11.65 Type 2 diabetes mellitus with hyperglycemia (principal); R00.1 Bradycardia, unspecified; Z88.2 Allergy status to sulfonamides; Z79.84 Long term (current) use of oral hypoglycemic drugs
CPT/HCPCS: 36415; 80053; 81003; 82009; 82803; 83605; 85025; 93005; 96360; 99285